=== PATIENT | female | born 1950 | race Hispanic/Latino ===

== ENCOUNTER → 2019-06-22 | Outpatient (CLI) | payer MEDICARE ==
--- NOTE | 2019-06-22 10:17 | Diagnostic Imaging Report ---
EXAMINATION: CHEST 2 VIEWS INDICATION: Shortness of breath COMPARISON: None FINDINGS: LINES/TUBES:None LUNGS:The lungs are well-inflated. No focal consolidation or pulmonary edema. PLEURA:No pleural effusion or pneumothorax. MEDIASTINUM:The cardiomediastinal silhouette appears normal in size and shape. Atherosclerotic calcifications of the thoracic aorta. BONES/SOFT TISSUES:No acute osseous injury. ABDOMEN:No free air under the diaphragm. IMPRESSION: No focal pneumonia or pulmonary edema. Signed by: Nichole Vieira MD on 06/22/2019 10:15 AM
== END ==
LOC: RAD 09:47
PROVIDERS: ATTEND Family Medicine
DX: J18.0 Bronchopneumonia, unspecified organism (principal)
CPT/HCPCS: 71046

== ENCOUNTER → 2019-07-17 | Outpatient (CLI) | payer OTHER | LOC: MAMMO 09:58 | PROVIDERS: ATTEND Family Medicine | DX: Z12.31 Encounter for screening mammogram for malignant neoplasm of breast (principal) | CPT/HCPCS: 77067 ==

== ENCOUNTER → 2019-10-16 | Outpatient (CLI) | payer MEDICARE ==
--- NOTE | 2019-10-17 11:16 | Diagnostic Imaging Report ---
EXAMINATION: WRIST COMPLETE LEFT INDICATION: Trauma COMPARISON: None FINDINGS: There is a subacute fracture of the left distal radius with associated sclerotic changes. No acute displaced fracture or dislocation. Alignment appears anatomic. The soft tissues appear unremarkable. IMPRESSION: Subacute left distal radius fracture with associated sclerotic changes. Signed by: Nichole Vieira MD on 10/17/2019 11:12 AM
--- NOTE | 2019-10-17 11:17 | Diagnostic Imaging Report ---
EXAMINATION: SP LUMBAR, COMPLETE MIN 4VW INDICATION: Back pain COMPARISON: None FINDINGS: No acute fracture. Vertebral body heights are well-maintained. Grade 1 anterolisthesis at L4-5. Oblique images demonstrate no definite spondylolysis. Mild multilevel degenerative changes with small osteophyte formation and facet arthropathy. Nonobstructive bowel gas pattern. IMPRESSION: No acute osseous injury. Grade 1 anterolisthesis at L4-5 and mild multilevel degenerative changes. Signed by: Nichole Vieira MD on 10/17/2019 11:14 AM
== END ==
LOC: RAD 17:07
PROVIDERS: ATTEND Family Medicine
DX: M54.5 Low back pain (principal); M25.532 Pain in left wrist; S52.502A Unspecified fracture of the lower end of left radius, initial encounter for closed fracture
CPT/HCPCS: 72110

== ENCOUNTER → 2020-01-18 | Outpatient (CLI) | payer OTHER ==
--- NOTE | 2020-01-18 10:25 | Diagnostic Imaging Report ---
Exam: Bone mineral density study. History: Osteopenia. Comparison: None Discussion: Evaluation of the left hip and lumbar spine was performed utilizing DEXA Hologic bone densitometer. The study is technically adequate. Left hip total bone mineral density: 0.744gm/cm2, T-score is -1.6, Z-score is -0.4. Left hip femoral neck bone mineral density: 0.587gm/cm2, T-score is -2.4, Z-score is -0.9. Lumbar spine total bone mineral density:0.919gm/cm2, T-score is-1.2, Z-score is 0.8. Impression: 1. Osteopenia of the left hip, fracture risk is increased 2. Osteopenia of the lumbar spine, fracture risk is increased Least significant change (LSC) for bone mineral density as provided by trainmaster is 0.023 g/cm2 for lumbar spine and 0.027 g/cm2 for total hip. 10 -year fracture risk per WHO Fracture Risk Assessment Tool (FRAX) for: Major osteoporotic fracture is 12.0% Hip fracture is 2.5% The above fracture probability is calculated for an untreated patient. Fracture probably may be lower if the patient has received treatment. All treatment decisions require clinical judgment and consideration of individual patient factors, including patient preferences, comorbidities, previous drug use and risk factors not captured in the FRAX model (e.g. frailty, falls, vitamin D deficiency, increased bone turnover, interval significant decline in BMD). The patient's fracture risk is compared to an age-matched control. Medical evaluation for secondary causes of low bone bone mineral density may be appropriate. Correlate clinically for the necessity and timing of the next bone mineral density study. Signed by: Dr. Heraclio Navarro M.D. on 01/18/2020 10:22 AM
--- NOTE | 2020-01-19 08:20 | Diagnostic Imaging Report ---
#[id number] - MGDXBIL #BILATERAL DIGITAL DIAGNOSTIC MAMMOGRAM WITH SPOT COMPRESSION: 01/18/2020 Comparison is made to exam dated: 07/17/2019 mammogram - [facility]. Current study contains 4 films. The tissue of both breasts is predominantly fatty. Bilateral circumscribed lesions are present confirmed as simple cysts on US. No significant masses, calcifications, or other findings are seen in either breast. IMPRESSION: BENIGN See the report for ultrasound performed the same day for additional details. There is no mammographic evidence of malignancy. A 1 year screening mammogram is recommended. The patient will be notified by letter of the results. SARAH FINN M.D. ct/penrad:01/18/2020 12:38:15 Leno Sewer: Stephanie HUTCHINSON(Royce)(M), [facility] letter sent: Normal Exam Mammogram BI-RADS: 2 Benign
--- NOTE | 2020-01-19 08:20 | Diagnostic Imaging Report ---
#[id number] - USBRELIMRT ULTRASOUND OF THE RIGHT BREAST : 01/18/2020 Comparison is made to exams dated: 01/18/2020 mammogram and 07/17/2019 mammogram - [facility]. Color flow and real-time ultrasound were performed on the right breast. There is a benign 7 mm oval cyst with a smooth internal wall in the right breast at 3 o'clock posterior depth. This oval cyst is anechoic with posterior acoustic enhancement. This correlates with mammography findings. IMPRESSION: BENIGN There is no sonographic evidence of malignancy. The 7 mm oval cyst in the right breast is benign. A 1 year screening mammogram is recommended. SARAH FINN M.D. ct/penrad:01/18/2020 12:40:47 Broom Worker: Jenn Argueta [facility], [facility] letter sent: Normal Exam Ultrasound BI-RADS: 2 Benign
--- NOTE | 2020-01-19 08:20 | Diagnostic Imaging Report ---
#[id number] - USBRELIMLT ULTRASOUND OF THE LEFT BREAST : 01/18/2020 Comparison is made to exams dated: 01/18/2020 mammogram and 07/17/2019 mammogram - [facility]. Color flow and real-time ultrasound were performed on the left breast. There is a benign 6 mm oval cyst with a smooth internal wall in the left breast at 10 o'clock middle depth. This oval cyst is anechoic with posterior acoustic enhancement. This correlates with mammography findings. IMPRESSION: BENIGN There is no sonographic evidence of malignancy. The 6 mm oval cyst in the left breast is benign. A 1 year screening mammogram is recommended. SARAH FINN M.D. ct/:01/18/2020 12:39:34 Furniture Delivery Driver: Jenn Argueta [facility], [place], [facility] letter sent: Normal Exam Ultrasound BI-RADS: 2 Benign
== END ==
LOC: MAMMO 09:24
PROVIDERS: ATTEND Internal Medicine
DX: R92.8 Other abnormal and inconclusive findings on diagnostic imaging of breast (principal); Z13.820 Encounter for screening for osteoporosis
CPT/HCPCS: 77066; 77080

== ENCOUNTER → 2024-09-01 | Outpatient (REF) | payer MEDICARE | LOC: MAMMO 08:12 | PROVIDERS: ATTEND Family Medicine | DX: Z12.31 Encounter for screening mammogram for malignant neoplasm of breast (principal) | CPT/HCPCS: 77067 ==